=== PATIENT | female | born 1975 | race Caucasian/White ===

== ENCOUNTER 2017-02-05 11:49 | Emergency (ER) | payer BC, OTHER ==
[2017-02-05 12:55] LABS: Hematocrit 41.7 % (30.3-42.9); Hemoglobin 13.7 gm/dl (10.1-14.3); Mean Corpuscular HGB Conc 33 % (30-34); Mean Corpuscular Hemoglobin 30 pg (28-32); Mean Corpuscular Volume 91 fl (79-97); Platelet Count 339 K/mm3 (140-440); Red Blood Count 4.56 M/mm3 (3.65-5.03); Red Cell Distribution Width 14.8 % (13.2-15.2); White Blood Count 7.9 K/mm3 (4.5-11.0)
[2017-02-05 15:11] LABS: Anion Gap 28 mmol/L; Blood Urea Nitrogen 9 mg/dL (7-17); Calcium 9.6 mg/dL (8.4-10.2); Carbon Dioxide 15 mmol/L (22-30); Chloride 100.5 mmol/L (98-107); Glucose 111 mg/dL (65-100); Potassium 4.3 mmol/L (3.6-5.0); Sodium 139 mmol/L (137-145)
[2017-02-05 19:30] VITALS: BP 139/86
== END 2017-02-05 23:00 | disposition left against medical advice (07) ==
LOC: ED 11:49
DX: R07.9 Chest pain, unspecified (principal); R06.02 Shortness of breath; Z53.21 Procedure and treatment not carried out due to patient leaving prior to being seen by health care provider
CPT/HCPCS: 36415; 80048; 84484; 85025; 93005; 93010

== ENCOUNTER 2017-04-23 20:47 | Emergency (ER) | payer OTHER ==
[2017-04-23 21:21] LABS: Basophils % (Auto) 0.8 % (0.0-1.8); Eosinophils % (Auto) 2.6 % (0.0-4.3); Hematocrit 39.9 % (30.3-42.9); Hemoglobin 12.8 gm/dl (10.1-14.3); Mean Corpuscular HGB Conc 32 % (30-34); Mean Corpuscular Hemoglobin 29 pg (28-32); Mean Corpuscular Volume 90 fl (79-97); Platelet Count 378 K/mm3 (140-440); Red Blood Count 4.42 M/mm3 (3.65-5.03); Red Cell Distribution Width 14.9 % (13.2-15.2)
[2017-04-23 21:37] LABS: BUN/Creatinine Ratio 24.28; Blood Urea Nitrogen 17 mg/dL (7-17); Calcium 9.1 mg/dL (8.4-10.2); Carbon Dioxide 21 mmol/L (22-30); Glucose 144 mg/dL (65-100)
[2017-04-23 21:38] LABS: Anion Gap 23 mmol/L; Chloride 102.1 mmol/L (98-107); Creatine Kinase 245 units/L (30-135); Potassium 4.1 mmol/L (3.6-5.0); Sodium 142 mmol/L (137-145)
[2017-04-23 21:52] LABS: Bilirubin,Urine NEG (Negative); Blood,Urine NEG (Negative); Ketones,Urine NEG (Negative); Leukocyte Esterase,Urine NEG (Negative); Mucus,Urine 1+ /HPF; Nitrite,Urine NEG (Negative); Protein,Urine <15 mg/dL mg/dL (Negative); Urobilinogen,Urine < 2.0 mg/dL (<2.0)
--- NOTE | 2017-04-23 22:34 | Cat Scan Report ---
FINAL REPORT PROCEDURE: CT ABDOMEN PELVIS WO CON TECHNIQUE: Computerized axial tomography of the abdomen and pelvis was performed without intravenous contrast. This study is performed without intravascular contrast material and its sensitivity for abdominal and pelvic pathology, including neoplasms, inflammation, abscess, free fluid, thrombosis, arterial dissection and infarction, is reduced compared with a contrast enhanced study. HISTORY: lower back pain, please include L-spine COMPARISON: No prior studies are available for comparison. FINDINGS: Visualized lower thorax: No significant abnormality. Liver: Normal size and attenuation. Spleen: Normal size and attenuation. Gallbladder and biliary system: There has been cholecystectomy. Pancreas: Normal. Adrenals: Normal. Kidneys: Bilateral nonobstructive renal calculi are present. Largest in the right kidney midpole measures 2 millimeters. Largest in the left kidney midpole measures 2 millimeters. GI tract: The appendix is visualized and does not appear inflamed. There is sigmoid and left colon diverticulosis. No bowel obstruction or acute inflammation is seen. Lymph nodes and mesentery: Normal. Vasculature: Normal. Bladder: Normal. Reproductive organs: 4 centimeter cyst is present in the pelvis just to the right of midline, likely projecting off the right ovary. Peritoneum: No free fluid. Musculoskeletal structures: There are multilevel lumbar spine degenerative disc changes, with disc space narrowing and anterior osteophyte formation. Most severe degenerative disc changes are present at L5-S1, where there is posterior disc herniation and vacuum phenomenon. Other: None. IMPRESSION: 4 centimeter right ovarian cyst. Bilateral nonobstructive renal calculi. Multilevel lumbar spine degenerative disc changes, most severe at L5-S1.
[2017-04-23] MEDS ORDERED: NORCO 5/325 ONE (22:49)
[2017-04-23] MEDS ORDERED: ZOFRAN ODT ONE (22:49)
[2017-04-23] MEDS ORDERED: TORADOL ONE (22:49)
[2017-04-23] MEDS ORDERED: ZOFRAN ODT PO ONE (22:57)
[2017-04-23] MEDS ORDERED: TORADOL IM ONE (22:57)
[2017-04-23] MEDS ORDERED: NORCO 5/325 PO ONE (22:57)
--- NOTE | 2017-04-24 00:17 | Emergency Department Report ---
Chief Complaint: Back Pain/Injury Stated Complaint: SEVERE BACK PAIN - HPI History of Present Illness: pt p/w c/o 8/10 lower back pain for several days. AAOX3, appears uncomfortable due to back pain. denies any falls or direct trauma, denies fever or chills, no saddle paraesthsias. Denies dysuria, nausea, abd pain. states pain radiates down bother legs. Is ambulatory but in pain - ROS Review of Systems: x3 days lower back pain - Exam Vital Signs: Vital Signs 04/23/17 20:50 Temperature 99.3 F Pulse Rate 82 Respiratory 20 Rate Blood Pressure 166/118 [Right] O2 Sat by Pulse 98 Oximetry Physical Exam: heart s1/s2, lungs clear, abdomen soft, no rash on lower back, pt is ambulatory , strength 5/5 b/l LE MSE screening note: Focused history and physical exam performed. Due to findings the following was ordered: MSE A/P: lower back pain 1- UA, non con CT l-spine/abdomen/pelvis 2- basic labs 3- I advised to to NOT elope or leave the ED before full her eval for risk of disability and until she has been fully evaluated by an ED provider. This is only an initial medcial screening assessment and she may need further diagnostics, observation or medical evaluation and treatment. ED Medical Decision Making - Lab Data Result diagrams: 04/23/17 21:04 04/23/17 21:04 ED Disposition for MSE Condition: Stable Referrals: PRIMARY CARE, [Primary Care Provider] - 3-5 Days
[2017-04-24 00:49] VITALS: BP 159/95
--- NOTE | 2017-04-24 01:17 | Emergency Department Report ---
HPI - General Chief Complaint: Back Pain/Injury Time Seen by Provider: 04/24/17 00:30 - HPI HPI: pt is a 42-year-old female presents ED complaining of bilateral lower back pain for the past 2 weeks. Patient states she was seen by primary care physician about a week ago and was given some muscle relaxants and tramadol. Patient states she took that in had some relief 3 days ago the pain continue. She states pain as throbbing aching and sharp in nature and localized to her lower bilateral back. She denies fevers/chills/nausea/vomiting. She admits some lower intermittent abdominal pain. ED Past Medical Hx - Past Medical History Previous Medical History?: Yes Additional medical history: ovarian cyst - Surgical History Past Surgical History?: Yes Hx Cholecystectomy: Yes Additional Surgical History: - Social History Smoking Status: Current Every Day Smoker Substance Use Type: Alcohol - Medications Home Medications: Home Medications Medication Instructions Recorded Confirmed Last Taken Type Levofloxacin [Levaquin TAB] 500 mg PO QDAY #14 tablet 03/16/16 Unknown Rx Diclofenac Sodium 75 mg PO BID #30 tablet. 04/24/17 Unknown Rx HYDROcodone/APAP 5-325 [[place] 1 each PO Q6HR PRN #12 tablet 04/24/17 Unknown Rx 5/325] Sulfamethoxazole/Trimethoprim 1 each PO BID #12 tablet 04/24/17 Unknown Rx [Bactrim DS TAB] ED Review of Systems ROS: Stated complaint: SEVERE BACK PAIN Other details as noted in HPI Constitutional: denies: chills, fever Eyes: denies: eye pain, eye discharge, vision change ENT: denies: ear pain, throat pain Respiratory: denies: cough, shortness of breath, wheezing Cardiovascular: denies: chest pain, palpitations Endocrine: no symptoms reported Gastrointestinal: denies: abdominal pain, nausea, diarrhea Genitourinary: denies: urgency, dysuria, frequency, hematuria, discharge Musculoskeletal: back pain. denies: joint swelling, arthralgia Skin: denies: rash, lesions, pruritus Neurological: denies: headache, weakness, numbness, paresthesias, confusion Psychiatric: denies: anxiety, depression Hematological/Lymphatic: denies: easy bleeding, easy bruising Physical Exam - Physical Exam Vital Signs: Vital Signs 04/23/17 04/23/17 04/24/17 20:50 23:31 00:01 Temperature 99.3 F Pulse Rate 82 Respiratory 20 16 16 Rate Blood Pressure 166/118 [Right] O2 Sat by Pulse 98 Oximetry 04/24/17 00:47 Temperature 98.1 F Pulse Rate 71 Respiratory 16 Rate Blood Pressure 159/95 [Right] O2 Sat by Pulse 96 Oximetry Physical Exam: GENERAL: Alert and oriented x3, mild distress, Normal Gait, atraumatic. HEAD: Head is normocephalic and a-traumatic. LUNGS: Symetrical with respiration, No wheezing, no rales or crackles, CTAB. HEART: S1, S2 present, regular rate and rhythm without murmur, no rubs, no gallops. Non tender to palpation ABDOMEN: No organomegaly was noted,Positive bowel sounds, soft, and non- distended. . Nontender to palpation on all Quadrants, NO CVA tenderness. BACK: Full range of motion, no spinal tenderness, mild tender to palpation. EXTREMITIES/MUSCULOSKELETAL: No cyanosis, clubbing, rash, lesions or edema. Full ROM bilaterally. UE/LE Pulses 2+ bilaterally. LE and UE 5+ strength bilaterally, straight leg raise negative bilaterally NEUROLOGIC: The patient is cooperative with no focal neurologic deficits. Cranial nerves II through XII are grossly intact. PSYCHIATRIC: Mood is congruent with affect, denies suicidal or homicidal ideations. SKIN: Warm and dry, No lesions, No ulceration or induration present. ED Course Vital Signs 04/23/17 04/23/17 04/24/17 20:50 23:31 00:01 Temperature 99.3 F Pulse Rate 82 Respiratory 20 16 16 Rate Blood Pressure 166/118 [Right] O2 Sat by Pulse 98 Oximetry 04/24/17 00:47 Temperature 98.1 F Pulse Rate 71 Respiratory 16 Rate Blood Pressure 159/95 [Right] O2 Sat by Pulse 96 Oximetry ED Medical Decision Making - Lab Data Result diagrams: 04/23/17 21:04 04/23/17 21:04 Laboratory Last Values WBC 12.0 K/mm3 (4.5-11.0) H 04/23/17 21:04 RBC 4.42 M/mm3 (3.65-5.03) 04/23/17 21:04 Hgb 12.8 gm/dl (10.1-14.3) 04/23/17 21:04 Hct 39.9 % (30.3-42.9) 04/23/17 21:04 MCV 90 fl (79-97) 04/23/17 21:04 MCH 29 pg (28-32) 04/23/17 21:04 MCHC 32 % (30-34) 04/23/17 21:04 RDW 14.9 % (13.2-15.2) 04/23/17 21:04 Plt Count 378 K/mm3 (140-440) 04/23/17 21:04 Lymph % (Auto) 28.2 % (13.4-35.0) 04/23/17 21:04 [place] % (Auto) 6.6 % (0.0-7.3) 04/23/17 21:04 Eos % (Auto) 2.6 % (0.0-4.3) 04/23/17 21:04 Baso % (Auto) 0.8 % (0.0-1.8) 04/23/17 21:04 Lymph # 3.4 K/mm3 (1.2-5.4) 04/23/17 21:04 [place] # 0.8 K/mm3 (0.0-0.8) 04/23/17 21:04 Eos # 0.3 K/mm3 (0.0-0.4) 04/23/17 21:04 Baso # 0.1 K/mm3 (0.0-0.1) 04/23/17 21:04 Seg Neutrophils % 61.8 % (40.0-70.0) 04/23/17 21:04 Seg Neutrophils # 7.4 K/mm3 (1.8-7.7) 04/23/17 21:04 Sodium 142 mmol/L (137-145) 04/23/17 21:04 Potassium 4.1 mmol/L (3.6-5.0) 04/23/17 21:04 Chloride 102.1 mmol/L (98-107) 04/23/17 21:04 Carbon Dioxide 21 mmol/L (22-30) L 04/23/17 21:04 Anion Gap 23 mmol/L 04/23/17 21:04 BUN 17 mg/dL (7-17) 04/23/17 21:04 Creatinine 0.7 mg/dL (0.7-1.2) 04/23/17 21:04 Estimated GFR > 60 ml/min 04/23/17 21:04 BUN/Creatinine Ratio 24.28 % 04/23/17 21:04 Glucose 144 mg/dL (65-100) H 04/23/17 21:04 Calcium 9.1 mg/dL (8.4-10.2) 04/23/17 21:04 Total Creatine Kinase 245 units/L (30-135) H 04/23/17 21:04 Troponin T < 0.010 ng/mL (0.00-0.029) 04/23/17 21:04 HCG, Qual Negative (Negative) 04/23/17 21:04 Urine Color Yellow (Yellow) 04/23/17 21:37 Urine Turbidity Clear (Clear) 04/23/17 21:37 Urine pH 5.0 (5.0-7.0) 04/23/17 21:37 Ur Specific [place] 1.018 (1.003-1.030) 04/23/17 21:37 Urine Protein <15 mg/dl mg/dL (Negative) 04/23/17 21:37 Urine Glucose (UA) Neg mg/dL (Negative) 04/23/17 21:37 Urine Ketones Neg mg/dL (Negative) 04/23/17 21:37 Urine Blood Neg (Negative) 04/23/17 21:37 Urine Nitrite Neg (Negative) 04/23/17 21:37 Urine Bilirubin Neg (Negative) 04/23/17 21:37 Urine Urobilinogen < 2.0 mg/dL (<2.0) 04/23/17 21:37 Ur Leukocyte Esterase Neg (Negative) 04/23/17 21:37 Urine WBC (Auto) 1.0 /HPF (0.0-6.0) 04/23/17 21:37 Urine RBC (Auto) 2.0 /HPF (0.0-6.0) 04/23/17 21:37 U Epithel Cells (Auto) 1.0 /HPF (0-13.0) 04/23/17 21:37 Urine Mucus 1+ /HPF 04/23/17 21:37 - Radiology Data Radiology results: report reviewed, image reviewed FINAL REPORT PROCEDURE: CT ABDOMEN PELVIS WO CON TECHNIQUE: Computerized axial tomography of the abdomen and pelvis was performed without intravenous contrast. This study is performed without intravascular contrast material and its sensitivity for abdominal and pelvic pathology, including neoplasms, inflammation, abscess, free fluid, thrombosis, arterial dissection and infarction, is reduced compared with a contrast enhanced study. HISTORY: lower back pain, please include L-spine COMPARISON: No prior studies are available for comparison. FINDINGS: Visualized lower thorax: No significant abnormality. Liver: Normal size and attenuation. Spleen: Normal size and attenuation. Gallbladder and biliary system: There has been cholecystectomy. Pancreas: Normal. Adrenals: Normal. Kidneys: Bilateral nonobstructive renal calculi are present. Largest in the right kidney midpole measures 2 millimeters. Largest in the left kidney midpole measures 2 millimeters. GI tract: The appendix is visualized and does not appear inflamed. There is sigmoid and left colon diverticulosis. No bowel obstruction or acute inflammation is seen. Lymph nodes and mesentery: Normal. Vasculature: Normal. Bladder: Normal. Reproductive organs: 4 centimeter cyst is present in the pelvis just to the right of midline, likely projecting off the right ovary. Peritoneum: No free fluid. Musculoskeletal structures: There are multilevel lumbar spine degenerative disc changes, with disc space narrowing and anterior osteophyte formation. Most severe degenerative disc changes are present at L5-S1, where there is posterior disc herniation and vacuum phenomenon. Other: None. IMPRESSION: 4 centimeter right ovarian cyst. Bilateral nonobstructive renal calculi. Multilevel lumbar spine degenerative disc changes, most severe at L5-S1. Transcribed By: [facility] Dictated By: ART SALAZAR M.D. Electronically Authenticated By: ART SALAZAR M.D. Signed Date/Time: 04/23/172227 - Medical Decision Making 42-year-old female presents with known obstructive renal stones ED course: CBC, CMP, CT scan, urinalysis all ordered. CBC results above. Discussed his findings with the patient. Discussed with patient presented for her pain most likely due to the kidney stones. Discussed the patient to follow up with lay out technician as referred. Discussed pain control with pain medication and plenty of water, cranberry juice. Discuss if symptoms worsen to return to ED Critical care attestation.: If time is entered above; I have spent that time in minutes in the direct care of this critically ill patient, excluding procedure time. ED Disposition Clinical Impression: Renal calculus, bilateral Disposition: [id number]-01 TO HOME OR SELFCARE Is pt being admited?: No Does the pt Need Aspirin: No Condition: Stable Instructions: Kidney Stones (ED), How to Strain Your Urine (ED), Flank Pain (ED ) Additional Instructions: Follow up with nephrology as discussed Take your medication as prescribed If symptoms worsen return to ED Prescriptions: Diclofenac Sodium 75 mg PO BID #30 tablet. HYDROcodone/APAP 5-325 [[place] 5/325] 1 each PO Q6HR PRN #12 tablet PRN Reason: Pain Sulfamethoxazole/Trimethoprim [Bactrim DS TAB] 1 each PO BID #12 tablet Referrals: PRIMARY CARE, [Primary Care Provider] - 3-5 Days EVELYN WOLFE MD [Staff Physician] - 3-5 Days PRINCESS SALDIVAR MD [Staff Physician] - 3-5 Days TAE BROWN MD [Staff Physician] - 3-5 Days Forms: Work/School Release Form, Accompanied Note Time of Disposition: 01:22
== END 2017-04-24 02:42 | disposition home or self-care (01) ==
LOC: ED 20:47
DX: N20.0 Calculus of kidney (principal); F17.210 Nicotine dependence, cigarettes, uncomplicated
CPT/HCPCS: 36415; 74176; 80048; 81001; 82550; 84484; 84703; 85025; 96372; 99284; J1885; Q0162